=== PATIENT | female | born 1970 | race African-American/Black ===

== ENCOUNTER 2018-09-16 10:57 | Emergency (ER) | payer OTHER ==
[2018-09-16] MEDS ORDERED: hydrOXYzine HCl 25 MG TAB ONE (12:51)
[2018-09-16] MEDS ORDERED: predniSONE 20 MG TAB ONE ×2 (12:51→13:02)
[2018-09-16] MEDS ORDERED: HYDRALAZINE HCL 20 MG/ML VIAL ONE (12:51)
[2018-09-16] MEDS ORDERED: FAMOTIDINE 20 MG/2 ML VIAL IV ONE (12:52)
[2018-09-16] MEDS ORDERED: NA CHLORIDE 0.9% 1,000 ML ONE (12:52)
[2018-09-16 12:57] LABS: Absolute Lymphocytes (CBC) 2.4 K/uL (0.7-4.9); Absolute Monocytes 0.4 K/uL (0.1-1.3); Absolute Neutrophil 5.5 K/uL (1.8-8.0); Basophils % 0.7 % (0-1.3); Eosinophils % 0.7 % (0-4.4); Hematocrit 42.9 % (36.0-45.0); Lymphocytes % 28.6 % (15.3-44.8); MPV 7.8 fL (7.6-11.3); Monocytes % 5.1 % (3.3-12.3); RBC Red Blood Cell Count 4.93 M/uL (3.86-4.86)
[2018-09-16 13:16] LABS: BUN Blood Urea Nitrogen 10 mg/dL (7-18); Bicarbonate 27 mmol/L (21-32); Glucose Level 102 mg/dL (74-106); Potassium 3.4 mmol/L (3.5-5.1); Sodium Level 141 mmol/L (136-145)
--- NOTE | 2018-09-16 14:39 | EDPHYS ---
Physician Documentation [facility] Name: Sade Hickey Age: 47 yrs Sex: Female : 1970 Arrival Date: 09/16/2018 Time: 11:06 Bed 7 Private MD: Ranulfo Keyes H ED Physician Mohit Shah HPI: 09/16 13:32 This 47 yrs old Black Female presents to ER via Ambulatory with complaints of Allergic snw Reaction, Hand Swelling. 13:32 The patient presents with diffuse swelling, itching, rash, redness of skin. Onset: The snw symptoms/episode began/occurred suddenly, yesterday, and became worse. Associated signs and symptoms: Pertinent positives: hives. Possible causes: flagyl. At home the patient or guardian has treated the symptoms with Benadryl. Severity of symptoms: At their worst the symptoms were moderate in the emergency department the symptoms are unchanged. The patient has not experienced similar symptoms in the past. c/o vaginal itching and was given flagyl which pt finished. 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 - Social history:: Smoking status: Patient uses tobacco products, smokes one-half pack cigarettes per day. - Ebola Screening: : Patient negative for fever greater than or equal to 101.5 degrees Fahrenheit, and additional compatible Ebola Virus Disease symptoms Patient denies exposure to infectious person Patient denies travel to an Ebola-affected area in the 21 days before illness onset No symptoms or risks identified at this time. ROS: 13:32 Constitutional: Negative for fever, chills, and weight loss, Eyes: Negative for injury, snw pain, redness, and discharge, ENT: Negative for injury, pain, and discharge, Neck: Negative for injury, pain, and swelling, Cardiovascular: Negative for chest pain, palpitations, and edema, Respiratory: Negative for shortness of breath, cough, wheezing, and pleuritic chest pain, Abdomen/GI: Negative for abdominal pain, nausea, vomiting, diarrhea, and constipation, Back: Negative for injury and pain, : Negative for injury, bleeding, discharge, and swelling, MS/Extremity: Negative for injury and deformity, Neuro: Negative for headache, weakness, numbness, tingling, and seizure, Psych: Negative for depression, anxiety, suicide ideation, homicidal ideation, and hallucinations. 13:32 Skin: Positive for erythema, rash, swelling, diffusely. Exam: 13:30 Head/Face: Normocephalic, atraumatic. Eyes: Pupils equal round and reactive to light, snw extra-ocular motions intact. Lids and lashes normal. Conjunctiva and sclera are non-icteric and not injected. Cornea within normal limits. Periorbital areas with no swelling, redness, or edema. 13:30 ENT: Nares patent. No nasal discharge, no septal abnormalities noted. Tympanic membranes are normal and external auditory canals are clear. Oropharynx with no redness, swelling, or masses, exudates, or evidence of obstruction, uvula midline. Mucous membranes moist. 13:30 Chest/axilla: Normal chest wall appearance and motion. Nontender with no deformity. No lesions are appreciated. Cardiovascular: Regular rate and rhythm with a normal S1 and S2. No gallops, murmurs, or rubs. Normal PMI, no JVD. No pulse deficits. Respiratory: Lungs have equal breath sounds bilaterally, clear to auscultation and percussion. No rales, rhonchi or wheezes noted. No increased work of breathing, no retractions or nasal flaring. Abdomen/GI: Soft, non-tender, with normal bowel sounds. No distension or tympany. No guarding or rebound. No evidence of tenderness throughout. Back: No spinal tenderness. No costovertebral tenderness. Full range of motion. MS/ Extremity: Pulses equal, no cyanosis. Neurovascular intact. Full, normal range of motion. Neuro: Awake and alert, GCS 15, oriented to person, place, time, and situation. Cranial nerves II-XII grossly intact. Motor strength 5/5 in all extremities. Sensory grossly intact. Cerebellar exam normal. Normal gait. Psych: Awake, alert, with orientation to person, place and time. Behavior, mood, and affect are within normal limits. 13:30 Constitutional: The patient appears alert, awake, uncomfortable. 13:30 Neck: External neck: swelling, that is moderate, of the thyroid cartilage, right aspect of thyroid, left aspect of thyroid, right sternocleidomastoid and left sternocleidomastoid, ROM/movement: is normal, hives. 13:30 Skin: Appearance: normal except for affected area, rash a moderate rash is noted, urticaria, and is diffusely located, on the upper and lower extremities, axillas, anterior neck. Vital Signs: 11:53 BP 129 / 99; Pulse 89; Resp 16; Temp 98.2; Pulse Ox 98% on R/A; Weight 95.71 kg; Height iw 5 ft. 6 in. (167.64 cm); 12:25 BP 178 / 121; Pulse 72; Resp 18; Temp 98.6; Pulse Ox 100% on R/A; Pain 8/10; pc1 12:55 BP 178 / 101; Pulse 95; Resp 16 S; Pulse Ox 98% on R/A; aa5 13:30 BP 141 / 81; Pulse 78; Resp 16 S; Pulse Ox 100% on R/A; aa5 13:57 BP 178 / 101; Pulse 70; Resp 18; Pulse Ox 100% on R/A; pc1 14:50 BP 152 / 78; Pulse 95; Resp 18 S; Temp 98.2(TE); Pulse Ox 99% on R/A; Pain 0/10; aa5 11:53 Body Mass Index 34.06 (95.71 kg, 167.64 cm) iw MDM: 11:57 Patient medically screened. steffi 14:41 Data reviewed: vital signs, nurses notes. Data interpreted: Pulse oximetry: on room air snw is 100 %. Interpretation: normal. Counseling: I had a detailed discussion with the patient and/or guardian regarding: the historical points, exam findings, and any diagnostic results supporting the discharge/admit diagnosis, the need for outpatient follow up, for definitive care, to return to the emergency department if symptoms worsen or persist or if there are any questions or concerns that arise at home. Response to treatment: the patient's symptoms have markedly improved after treatment, and as a result, I will discharge patient. Special discussion: I have referred the patient to see his PCP for further evaluation of high blood pressure. Based on the history and exam findings, there is no indication for further emergent testing or inpatient evaluation. I discussed with the patient/guardian the need to see the primary care provider for further evaluation of the symptoms. 03 12:34 Order name: CBC with Diff; Complete Time: 13:15 snw 03 12:34 Order name: Chem 7; Complete Time: 13:17 snw Administered Medications: 12:48 Drug: Atarax 50 mg Route: PO; aa5 13:30 Follow up: Response: No adverse reaction aa5 12:48 Drug: predniSONE 40 mg Route: PO; aa5 13:30 Follow up: Response: No adverse reaction aa5 12:50 Drug: NS 0.9% 1000 ml Route: IV; Rate: 75 ml/hr; Site: left forearm; aa5 14:50 Follow up: IV Status: Order to discontinue infusion aa5 12:50 Drug: Pepcid 20 mg Route: IVP; Site: left forearm; aa5 13:00 Follow up: Response: No adverse reaction aa5 12:50 Drug: hydrALAZINE 5 mg Route: IV; Rate: calculated rate; Site: left forearm; aa5 13:00 Follow up: Response: No adverse reaction aa5 Disposition: 09/17 08:05 Co-signature as Attending Physician, Mohit Shah MD I agree with the assessment and steffi plan of care. Disposition: 09/16/18 14:39 Discharged to Home. Impression: Urticaria, unspecified, Allergy status to drugs, medicaments and biological substances - probable Flagyl. - Condition is Stable. - Discharge Instructions: Drug Allergy, Hives, Hypertension. - Prescriptions for Zyrtec 10 mg Oral Tablet - take 1 tablet by ORAL route once daily As needed; 20 tablet. Prednisone 20 mg Oral Tablet - take 2 tablet by ORAL route once daily for 5 days; 10 tablet. Pepcid 20 mg Oral Tablet - take 1 tablet by ORAL route once daily; 20 tablet. - Work release form, Medication Reconciliation Form, Thank You Letter, Antibiotic Education, Prescription Opioid Use form. - Follow up: Ranulfo Keyes DO; When: Tomorrow; Reason: Recheck today's complaints, Continuance of care, Re-evaluation by your physician. Follow up: Emergency Department; When: As needed; Reason: Worsening of condition. Signatures: Dispatcher [employer] EDMS Mohit Shah MD MD cha Therrien, Shelly, VIDEO GAME ANIMATOR-C VIDEO GAME ANIMATOR-Csnw Yudy Bradley, RN RN iw Shae Travis RN RN aa5 Corrections: (The following items were deleted from the chart) 09/16 14:56 14:39 09/16/2018 14:39 Discharged to Home. Impression: Urticaria, unspecified; Allergy aa5 status to drugs, medicaments and biological substances - probable Flagyl. Condition is Stable. Forms are Medication Reconciliation Form, Thank You Letter, Antibiotic Education, Prescription Opioid Use. Follow up: Ranulfo Keyes; When: Tomorrow; Reason: Recheck today's complaints, Continuance of care, Re-evaluation by your physician. Follow up: Emergency Department; When: As needed; Reason: Worsening of condition. snw
--- NOTE | 2018-09-16 14:39 | ER ---
Nurse's Notes [facility] Name: Sade Hickey Age: 47 yrs Sex: Female : 1970 Arrival Date: 09/16/2018 Time: 11:06 Bed 7 Private MD: Ranulfo Keyes H Diagnosis: Urticaria, unspecified;Allergy status to drugs, medicaments and biological substances-probable Flagyl Presentation: 09/16 11:49 Presenting complaint: Patient states: hives and itching to right arm and neck, groin, iw started yesterday, works at [employer] but does not remember getting into anything, known allergy to Latex, denies exposure to latex. Transition of care: patient was not received from another setting of care. Onset: The symptoms/episode began/occurred yesterday. Anaphylaxis evaluation, the patient reports or I have noted the following symptoms which indicate a significant risk of anaphylaxis:. Onset of symptoms was September 15, 2018. Risk Assessment: Do you want to hurt yourself or someone else? Patient reports no desire to harm self or others. Initial Sepsis Screen: Does the patient meet any 2 criteria? No. Patient's initial sepsis screen is negative. Does the patient have a suspected source of infection? No. Patient's initial sepsis screen is negative. Care prior to arrival: Medication(s) given: benADRYL. 11:49 Method Of Arrival: Ambulatory iw 11:49 Acuity: ADRIEL 3 iw Triage Assessment: 12:06 General: Appears distressed, uncomfortable, Behavior is calm, cooperative. EENT: pc1 Reports "weird felling in the throat". 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 - Social history:: Smoking status: Patient uses tobacco products, smokes one-half pack cigarettes per day. - Ebola Screening: : Patient negative for fever greater than or equal to 101.5 degrees Fahrenheit, and additional compatible Ebola Virus Disease symptoms Patient denies exposure to infectious person Patient denies travel to an Ebola-affected area in the 21 days before illness onset No symptoms or risks identified at this time. Screenin:17 Abuse screen: Denies threats or abuse. Denies injuries from another. Nutritional pc1 screening: No deficits noted. Tuberculosis screening: No symptoms or risk factors identified. Fall Risk None identified. Assessment: 12:09 General: Appears uncomfortable, Behavior is calm, cooperative. Respiratory: Airway is pc1 patent Respiratory effort is even, unlabored, relaxed, Respiratory pattern is regular, Breath sounds are clear bilaterally. in right upper lobe, left upper lobe, right middle lobe, left lower lobe, left posterior upper lobe and right posterior upper lobe. Derm: Skin is intact, Skin is dry, Skin is normal, Skin temperature is warm Rash noted that is itchy, red, raised, on lateral aspect of left thigh. 12:16 Pain: Complains of pain in right hand Pain does not radiate. Pain currently is 10 out pc1 of 10 on a pain scale. Quality of pain is described as burning, Pain began 1 day ago. GI: No deficits noted. No signs and/or symptoms were reported involving the gastrointestinal system. : No deficits noted. No signs and/or symptoms were reported regarding the genitourinary system. EENT: Reports "weird feeling in throat". Musculoskeletal: No deficits noted. 12:16 Reassessment: I agree with assessment completed by Hector Segovia (Student Nurse). Hives aa5 noted to neck, right underarm, and lower abdomen. Bar hands with redness noted and small red raised rash. Pt c/o itching. . 13:30 Reassessment: Hives have improved, pt currently denies itching. Pt resting in bed with aa5 eyes closed, respirations even and unlabored, skin normal/warm/dry.. 14:26 Reassessment:. Pain: Denies pain. Derm: Rash noted that is present in the right hand pc1 and right portion of the neck but decreased in size and returned to appropriate color. Vital Signs: 11:53 BP 129 / 99; Pulse 89; Resp 16; Temp 98.2; Pulse Ox 98% on R/A; Weight 95.71 kg; Height iw 5 ft. 6 in. (167.64 cm); 12:25 BP 178 / 121; Pulse 72; Resp 18; Temp 98.6; Pulse Ox 100% on R/A; Pain 8/10; pc1 12:55 BP 178 / 101; Pulse 95; Resp 16 S; Pulse Ox 98% on R/A; aa5 13:30 BP 141 / 81; Pulse 78; Resp 16 S; Pulse Ox 100% on R/A; aa5 13:57 BP 178 / 101; Pulse 70; Resp 18; Pulse Ox 100% on R/A; pc1 14:50 BP 152 / 78; Pulse 95; Resp 18 S; Temp 98.2(TE); Pulse Ox 99% on R/A; Pain 0/10; aa5 11:53 Body Mass Index 34.06 (95.71 kg, 167.64 cm) iw ED Course: 11:06 Patient arrived in ED. mr 11:06 Ranulfo Keyes DO is Private Physician. mr 11:51 Cristina Dillon FNP-C [facility]. snw 11:51 Mohit Shah MD is Attending Physician. snw 11:51 Triage completed. iw 12:02 Shae Travis, BLAKE is Primary Nurse. aa5 12:17 Patient has correct armband on for positive identification. Placed in gown. Bed in low pc1 position. Side rails up X2. 12:45 Inserted saline lock: 20 gauge in left forearm, using aseptic technique. pc1 14:35 Ranulfo Keyes DO is Referral Physician. snw 14:55 No provider procedures requiring assistance completed. IV discontinued, intact, aa5 bleeding controlled, No redness/swelling at site. Pressure dressing applied. Administered Medications: 12:48 Drug: Atarax 50 mg Route: PO; aa5 13:30 Follow up: Response: No adverse reaction aa5 12:48 Drug: predniSONE 40 mg Route: PO; aa5 13:30 Follow up: Response: No adverse reaction aa5 12:50 Drug: NS 0.9% 1000 ml Route: IV; Rate: 75 ml/hr; Site: left forearm; aa5 14:50 Follow up: IV Status: Order to discontinue infusion aa5 12:50 Drug: Pepcid 20 mg Route: IVP; Site: left forearm; aa5 13:00 Follow up: Response: No adverse reaction aa5 12:50 Drug: hydrALAZINE 5 mg Route: IV; Rate: calculated rate; Site: left forearm; aa5 13:00 Follow up: Response: No adverse reaction aa5 Outcome: 14:39 Discharge ordered by MD. dove 14:55 Attestation : I agree with documentation completed by Hector Segovia, Student Nurse . aa5 14:55 Discharged to home ambulatory. 14:55 Condition: improved 14:55 Discharge instructions given to patient, Instructed on discharge instructions, follow up and referral plans. medication usage, Demonstrated understanding of instructions, follow-up care, medications, Prescriptions given X 3. 14:56 Patient left the ED. aa5 Signatures: Cristina Dillon, OCEAN TRANSPORTATION INTERMEDIARY-C OCEAN TRANSPORTATION INTERMEDIARY-Csnw Sarahi Cao mr Yudy Bradley, RN RN iw Shae Travis RN RN Hector Monge pc1 Corrections: (The following items were deleted from the chart) 11:51 11:49 Presenting complaint: Patient states: hives and itching to right arm and neck, iw started yesterday, works at [employer] but does not remember getting into anything, known allergy to Latex, denies exposure to latex iw 12:17 12:09 Respiratory: Airway is patent Respiratory effort is even, unlabored, relaxed, pc1 Respiratory pattern is regular, Breath sounds are clear bilaterally. in right upper lobe, left upper lobe, right middle lobe, left lower lobe, left posterior upper lobe and right posterior upper lobe pc1 12:24 12:16 Pain: Denies pain. pc1 pc1 12:53 12:52 Inserted saline lock: 20 gauge in left forearm, using aseptic technique. pc1 pc1 13:28 12:09 General: Appears distressed, uncomfortable, Behavior is calm, cooperative, pc1 aa5 13:48 12:09 Derm: Skin is intact, Rash noted that is itchy, red, raised, on lateral aspect of aa5 left thigh pc1
== END 2018-09-16 14:56 | disposition home or self-care (01) ==
LOC: ER 10:57
DX: L50.9 Urticaria, unspecified (principal); I10 Essential (primary) hypertension; F17.210 Nicotine dependence, cigarettes, uncomplicated; Z88.8 Allergy status to other drugs, medicaments and biological substances; Z91.09 Other allergy status, other than to drugs and biological substances; Z91.040 Latex allergy status
CPT/HCPCS: 36415; 80048; 85025; 96361; 96374; 96375; 99283; J0360; J7030; J7512